=== PATIENT | female | born 1950 | race Caucasian/White ===

== ENCOUNTER 2020-09-05 13:45 | Inpatient (IN) | payer OTHER ==
[~2020-09-05] VITALS: Ht 157.5 cm; Wt 54.9 kg
[~2020-09-05 13:45] MED LIST: ASPIRIN EC81 MG PO; CAPTOPRIL12.5 MG PO; LIPITOR80 MG PO; LISINOPRIL30 MG PO; LOPRESSOR 25 MG25 MG PO; MIRTAZAPINE15 MG PO; NORVASC5 MG PO
[2020-09-05 18:00] LABS: HEMOGLOBIN 12.8 gm/dl (12.3-15.3); RED BLOOD COUNT 4.27 M/UL (4.00-5.10); WHITE BLOOD COUNT 10.8 K/UL (4.5-11.0)
[2020-09-05] MEDS ORDERED: ALDACTONE 25MG25 MG PO (18:24)
[2020-09-05] MEDS ORDERED: JARDIANCE10 MG PO (18:26)
[2020-09-05] MEDS ORDERED: ENTRESTO 24 MG1 EACH PO (18:28)
[2020-09-06 06:39] LABS: RED BLOOD COUNT 3.95 M/UL (4.00-5.10); WHITE BLOOD COUNT 10.7 K/UL (4.5-11.0)
[2020-09-08] MEDS ORDERED: LOPRESSOR 25 MG25 MG PO (08:51)
[2020-09-08] MEDS ORDERED: METFORMIN HCL500 MG PO (08:57)
== END 2020-09-08 13:30 | disposition home or self-care (01) | DRG 281 ==
LOC: PROG CARE 17:08
PROVIDERS: Internal Medicine; ADMIT Internal Medicine
PROC: B246ZZZ Ultrasonography of Right and Left Heart (ICD-10-PCS; principal; 2020-09-06)
DX: I21.4 Non-ST elevation (NSTEMI) myocardial infarction (principal); I51.81 Takotsubo syndrome; I50.20 Unspecified systolic (congestive) heart failure; I95.9 Hypotension, unspecified; E78.5 Hyperlipidemia, unspecified; I25.10 Atherosclerotic heart disease of native coronary artery without angina pectoris; I11.0 Hypertensive heart disease with heart failure; I27.20 Pulmonary hypertension, unspecified; Z20.822 Contact with and (suspected) exposure to COVID-19; I07.1 Rheumatic tricuspid insufficiency; E11.65 Type 2 diabetes mellitus with hyperglycemia; Z90.710 Acquired absence of both cervix and uterus; Z79.82 Long term (current) use of aspirin; Z90.49 Acquired absence of other specified parts of digestive tract; Z82.49 Family history of ischemic heart disease and other diseases of the circulatory system; Z83.3 Family history of diabetes mellitus; Z80.9 Family history of malignant neoplasm, unspecified; Z79.899 Other long term (current) drug therapy; Z98.61 Coronary angioplasty status
CPT/HCPCS: ECHO; 36415; 80048; 80053; 82550; 82553; 82962; 83735; 84484; 85025; 85730; 93005; 93306; G0379; J1644; J7040

== ENCOUNTER → 2020-10-04 | Outpatient (CLI) | payer OTHER ==
[~2020-10-04] MED LIST changes: +ALDACTONE 25MG25 MG PO; +ENTRESTO 24 MG1 EACH PO; +JARDIANCE10 MG PO; +METFORMIN HCL500 MG PO
== END ==
LOC: HEART 5 08:16
DX: R07.9 Chest pain, unspecified (principal); I25.2 Old myocardial infarction
CPT/HCPCS: 78452; A9502; J2785

== ENCOUNTER → 2021-06-01 | Outpatient (CLI) | payer MEDICARE | LOC: HEART 5 14:00 | DX: I42.0 Dilated cardiomyopathy (principal); I51.9 Heart disease, unspecified | CPT/HCPCS: 93306 ==